=== PATIENT | female | born 1935 | race Caucasian/White ===

== ENCOUNTER 2016-03-25 05:26 | Day surgery (SDC) | payer OTHER ==
[2016-03-24 11:34] VITALS: BMI 32.2
[2016-03-25] MEDS ORDERED: ACETAMINOPHEN 325 MG TABLET (FP) PO PRN (11:07)
[2016-03-25] MEDS ORDERED: IBUPROFEN 400 MG TABLET (FP) PO PRN (11:07)
--- NOTE | 2016-03-25 11:07 | HP ---
History & Physical Update - History History: No Change - Physical Physical: No Change - Assessment Assessment: No Change - Plan Plan: No Change
[2016-03-25] MEDS ORDERED: ePHEDrine SULFATE 50 MG/1 ML AMPULE ONE (11:17)
[2016-03-25] MEDS ORDERED: PHENYLEPHRINE HCL 10 MG/1 ML SINGLE DOSE VIAL ONE (11:17)
[2016-03-25] MEDS ORDERED: PROPOFOL 20 ML ONE (11:18)
[2016-03-25] MEDS ORDERED: SUCCINYLCHOLINE CHLORIDE 200 MG/10 ML VIAL ONE (11:18)
[2016-03-25] MEDS ORDERED: SODIUM CHLORIDE 0.9% P/F 10 ML VIAL IJ ONE (11:22)
[2016-03-25] MEDS ORDERED: ESTROGENS,CONJUGATE VAGINAL CR 30 GM TUBE VG ONE ×2 (11:56→12:00)
[2016-03-25] MEDS ORDERED: oxyCODONE HCL 5 MG TABLET PO PRN (12:11)
[2016-03-25] MEDS ORDERED: ONDANSETRON 4 MG/2 ML VIAL IVPUSH PRN (12:11)
[2016-03-25] MEDS ORDERED: LACTATED RINGERS SOLUTION 1,000 ML IV SCH (12:15)
[2016-03-25] MEDS ORDERED: ACETAMINOPHEN INJECTION 100 ML IVPB ONE (13:09)
[2016-03-25] MEDS ORDERED: ACETAMINOPHEN 1000 MG/100 ML VIAL (NON FORMULARY) IVPB ONE ×2 (13:10→13:38)
[2016-03-25] MEDS ORDERED: LIDOCAINE HCL 4% TOPICAL SOLN (50 ML/BOTTLE) MM ONE (13:48)
[2016-03-25 14:20] VITALS: TEMP 98.1
[2016-03-25] MEDS ORDERED: BENZOCAINE 20% 57 GM BOTTLE TP ONE (15:15)
[2016-03-25 17:56] VITALS: BP 130/78; PULSE 80
--- NOTE | 2016-03-26 08:58 | OP ---
Operative Note - Note: Operative Date: 03/25/16 Pre-Operative Diagnosis: Labial adhesions Operation: Lysis of labial adhesions. perineorrhaphy Findings: labia fused in midline up to a small hole Post-Operative Diagnosis: Same as Pre-op Surgeon: Yodit Powell Anesthesia: General Estimated Blood Loss (mls): 3 Operative Report Dictated: Yes
--- NOTE | 2016-03-26 10:47 | OP ---
DATE OF OPERATION: 03/25/2016 PREOPERATIVE DIAGNOSIS: Labial adhesions. OPERATION: Lysis of labial adhesions and perineal raphe. POSTOPERATIVE DIAGNOSIS: Labial adhesions. SURGEON: Yodit Powell MD ANESTHESIA: General. ESTIMATED BLOOD LOSS: 3 mL. PROCEDURE: Patient was taken to the operating room, placed in dorsal lithotomy position, prepped and draped in the usual sterile fashion. A time-out was performed in accordance with hospital regulations. Examination revealed labial adhesions sealed up only to a pinpoint hole. The dilator was then inserted into the hole, and scalpel was then used to make a vertical incision down the labia in the midline to open up the labial adhesions. The vagina was then grasped with an Allis clamp, and a V-incision in the vagina and a V-incision in the in the perineum was done to keep the labial wall separate. Vicryl 0 suture was then used to sew the vagina in the perineum. Labia was then kept apart using sutures, and packing was then placed with Premarin cream to avoid adhesions again. Estimated blood loss was 3 mL. All instruments were then removed. Patient had tolerated the procedure well and was taken to the recovery room in stable condition. YODIT POWELL M.D. [id number]
--- NOTE | 2016-03-26 15:19 | PATH ---
Surgical Pathology Report Patient Name: SIMRAN LU [facility]. Rec. #: [id number] /Age/Gender: 1935 (Age: 80) / F Account: [id number] Location: [facility] SURGICAL Taken: 03/25/2016 Received: 03/25/2016 Reported: 03/26/2016 Physicians: Yodit Powell M.D. Specimen(s) Received FOREIGN BODY (VAGINA) Clinical History Labial adhesions Final Diagnosis DESIGNATED VAGINAL FOREIGN-BODY, EXCISION: SQUAMOUS MUCOSA WITH ATROPHIC FEATURES, WITH ASSOCIATED CHRONIC INFLAMMATION. NO CARCINOMA OR DYSPLASIA IDENTIFIED. FOREIGN MATERIAL GROSSLY IDENTIFIED. Comment: Recommend correlation with clinical findings and follow up as clinically indicated. Electronically Signed Shamar Reeves M.D. Gross Description Received in formalin, labeled "vaginal foreign body," are 2 figueredo, irregular portions of soft tissue measuring 0.9 and 1.4 cm in greatest dimension. Also received within the same container is a 0.6 x 0.4 x 0.2 cm aggregate of black material. The portions of soft tissue are entirely submitted in one cassette. 03/25/201603/25/2016
== END 2016-03-25 15:30 | disposition home or self-care (01) ==
LOC: JASU-SURG 05:26
PROVIDERS: ATTEND Obstetrics & Gynecology
PROC: 0UNMXZZ Release Vulva, External Approach (ICD-10-PCS; principal; 2016-03-25 10:00)
DX: Q52.5 Fusion of labia (principal)
CPT/HCPCS: 88304-TC; 94760; J1410

== ENCOUNTER 2019-02-06 09:39 | Day surgery (SDC) | payer OTHER ==
[2019-02-05 13:07] VITALS: BMI 26.4
[2019-02-06] MEDS ORDERED: PROPOFOL 20 ML ONE (10:39)
[2019-02-06] MEDS ORDERED: ELECTROLYTE-148 SOLN 1,000 ML IV SCH (11:45)
--- NOTE | 2019-02-06 11:47 | OP ---
Operative Note - Note: Operative Date: 02/06/19 Pre-Operative Diagnosis: Bladder calculi Operation: Cystoscopy Lithopaxy of bladder stones Post-Operative Diagnosis: Same as Pre-op Surgeon: Anand Cortes MD. Anesthesia: General Specimens Removed: Bladder stones Operative Report Dictated: Yes
[2019-02-06] MEDS ORDERED: oxyCODONE HCL 5 MG TABLET PO PRN (12:08)
[2019-02-06] MEDS ORDERED: ONDANSETRON 4 MG/2 ML VIAL IVPUSH PRN (12:08)
[2019-02-06] MEDS ORDERED: ceFAZolin SODIUM 1 GM VIAL IVPB ONE (12:31)
[2019-02-06 15:14] VITALS: BP 126/60; PULSE 57; TEMP 97.7
--- NOTE | 2019-02-08 16:43 | PATH ---
Surgical Pathology Report Patient Name: SIMRAN LU [facility]. Rec. #: [id number] /Age/Gender: 1935 (Age: 83) / F Account: [id number] Location: [facility] Taken: 02/06/2019 Received: 02/07/2019 Reported: 02/08/2019 Physicians: Anand Cortes M.D. Specimen(s) Received BLADDER STONE Clinical History Bladder stones Final Diagnosis BLADDER STONE, CYSTOLITHOLAPAXY: BLADDER CALCULI. MACROSCOPIC DIAGNOSIS. Electronically Signed Feli Payne M.D. Gross Description Received fresh labeled "bladder stones," is a 2.3 x 1.0 x 0.4 cm aggregate of black, irregular to fragmented calculi. The specimen is sent for chemical analysis. 02/07/201902/07/2019
[2019-02-23 17:07] LABS: CA OXALATE MONOHYDR. 95 % (.); WEIGHT 642.8 mg (.)
--- NOTE | 2019-02-27 17:02 | OP ---
DATE OF OPERATION: 02/06/2019 PREOPERATIVE DIAGNOSIS: Bladder calculi. POSTOPERATIVE DIAGNOSIS: Bladder calculi. PROCEDURE: Cystoscopy, litholapaxy, and bladder stones. HISTORY: This is a very pleasant 83-year-old female with a history of bladder calculi and recurring urinary tract infections. Preoperative imaging showed several 1-cm calculi. Discussed treatment options, patient elected to undergo the above stated procedure. Risks and benefits of treatment and alternatives discussed in detail. All questions were answered. BRIEF OPERATIVE NOTE: The patient is brought in the operating room, placed in supine position. Once general anesthesia was administered, patient was transferred to the dorsal lithotomy position, prepped and draped in standard sterile fashion. Intravenous antibiotics were given. At this time, a 23 [place] endoscope sheath was placed into the bladder under direct vision urethral strictures. The bladder was otherwise unremarkable. The above stated stones were visualized. At this time using a 1000-micron GreenLight stone was fragmented into multiple small fragments. The procedure took approximately 25 to 30 minutes. The stones were then evacuated out with [facility] evacuator and patient brought to recovery room in stable and satisfactory condition. JAS LAKE M.D. [id number]
== END 2019-02-06 15:10 | disposition home or self-care (01) ==
LOC: JASU-SURG 09:39
PROVIDERS: ATTEND Urology
PROC: 0TCB8ZZ Extirpation of Matter from Bladder, Via Natural or Artificial Opening Endoscopic (ICD-10-PCS; principal; 2019-02-06 11:30)
DX: N21.0 Calculus in bladder (principal)
CPT/HCPCS: 36415; 82360; 94760